=== PATIENT | female | born 2000 | race Two or more races ===

== ENCOUNTER 2024-06-26 20:55 | Observation (INO) | payer OTHER, MEDICAID, SELFPAY ==
[2024-06-26 20:58] VITALS: BP 130/76; PULSE 130; RESP 20; TEMP 37.2
--- NOTE | 2024-06-26 21:14 | XR_ITS ---
Examination: Biophysical profile, ultrasound Date and time of exam: June 26, 2024 2152 hrs. Indications: Decreased movement beginning 2 days ago Technique: Multiple transabdominal sonographic images of the pelvis abdomen obtained. Attention is directed to the breathing movement, gross body movement, amniotic fluid volume and tone. Findings: Amniotic fluid index 15.1 cm Total biophysical profile is 8 of 8. breathing movement is 2. Gross body movement is 2. tone is 2. Qualitative amniotic fluid volume is 2 Impression: Biophysical profile is 8 of 8.
[2024-06-26 21:50] LABS: Collection Type, Urine Clean Catch
[2024-06-26 22:02] LABS: Basophils % (Auto) 0 % (0-2.5); Eosinophils % (Auto) 0 % (0-10); Hematocrit 33.3 % (36.0-46.0); Hemoglobin 10.8 g/dL (12.0-16.0); Immature Granulocytes % (Auto) 0 % (0-0); Immature Granulocytes Auto 0.05 Thou/mm3 (0.00-0.00); Lymphocytes # (Auto) 0.8 Thou/mm3 (1.0-4.8); Lymphocytes % (Auto) 6 % (10-50); Mean Corpuscular HGB Conc 32.4 g/dl (31.0-37.0); Mean Corpuscular Hemoglobin 27.7 pg (25.0-35.0); Mean Corpuscular Volume 85 fL (80-100); Monocytes # (Auto) 1.4 Thou/mm3 (0.0-0.8); Monocytes % (Auto) 10 % (0-12); Neutrophils # (Auto) 11.4 Thou/mm3 (1.8-7.7); Neutrophils % (Auto) 83 % (37-80); Nucleated Red Blood Cell % 0 /100 WBC (0); Platelet Count 245 Thou/mm3 (140-440); RDW Standard Deviation 41.3 fL (36.4-46.3); White Blood Count 13.7 Thou/mm3 (3.6-11.0)
[2024-06-26 22:11] LABS: Alanine Aminotransferase 15 U/L (10-49); Albumin, Serum 4.1 gm/dL (3.5-5.0); Albumin/Globulin Ratio 1.4 (1.2-2.2); Alkaline Phosphatase 91 U/L (46-116); Anion Gap 8 (7-16); Aspartate Amino Transferase 16 U/L (0-34); BUN/Creatinine Ratio 10 Ratio (12-20); Bilirubin,Total 1.1 mg/dL (0.3-1.2); Blood Urea Nitrogen 6 mg/dL (9-23); Calcium 9.2 mg/dL (8.3-10.6); Calcium (Corrected) 9.2 mg/dL (8.5-10.1); Chloride 101 mMol/L (98-107); Creatinine (Component) 0.6 mg/dL (0.6-1.3); Glucose 92 mg/dL (74-106); LDH (Lactate Dehydrogenase) 150 U/L (120-246); Osmolality,Calculated 260 (275-295); Potassium 3.7 mMol/L (3.4-5.1); Sodium 131 mMol/L (136-145); Total Protein 7.1 gm/dL (5.7-8.2); Uric Acid 4.3 mg/dL (3.1-7.8); eGFR > 60 See Note
[2024-06-26 22:14] LABS: Partial Thromboplastin Time 30.2 Seconds (22.0-36.0); Prothrombin Time 11.2 Seconds (9.0-12.2)
[2024-06-26 22:17] LABS: Fibrinogen 674 mg/dL (175-375)
[2024-06-26 22:28] LABS: Bacteria,Urine Rare; Bilirubin,Urine Negative (Negative); Blood,Urine Trace (Negative); Clarity,Urine Turbid (Clear/Hazy); Color,Urine Yellow (Lt Yel-Yel); Glucose, Urine Negative (Negative); Ketones,Urine 3+ (Negative); Leukocyte Esterase,Urine Positive (Negative); Nitrite,Urine Positive (Negative); Protein,Urine 1+ (Neg - Trace); RBC,Urine 12 /hpf (0-3); Specific Gravity,Urine 1.024 (1.001-1.035); Squamous Epithelial Cell,Urine 15 /hpf (0-5); Urobilinogen,Urine Negative mg/dL (0.0-1.0); WBC,Urine 172 /hpf (0-5)
[2024-06-26 22:55] VITALS: BMI 30.1
[2024-06-26] MEDS: RINGERS LACTATED 1000 ML 1,000 ML 999 ML IV (23:43)
[2024-06-26] MEDS: cefTRIAXone 1,000 MG in SODIUM CHLORIDE 0.9% (P) 50 ML 100 MG IV (23:52)
[2024-06-26 23:59] VITALS: TEMP 37.5
[2024-06-27] MEDS: ONDANSETRON INJ 2 MG/ML INJ 2 ML 4 MG IV (00:41)
[2024-06-27] MEDS: ACETAMINOPHEN IVPB 1,000 MG/100 ML VIAL 250 MG IV (00:44)
[2024-06-27 02:00] VITALS: RESP 16; TEMP 36.7; O2SAT 100
--- NOTE | 2024-06-27 21:32 | PC.NURSE ---
2126: PT CALLED REGARDING RX PRESCRIBED BY DR. ROSE, PT WAS MADE AWARE THAT A VOICEMAIL WAS LEFT, PT REPORTED SHE DID NOT RECEIVE IT, PT WAS INSTRUCTED THAT RX FOR MACROBID 100MG PO BID X5 DAYS FOR UTI WAS CALLED IN TO [facility], S/E EXPLAINED TO PT, PT HAD NO QUESTIONS AND VERBALIZED UNDERSTANDING.
== END 2024-06-27 02:00 | disposition home or self-care (01) ==
PROVIDERS: Admitting Provider Obstetrics & Gynecology; Visit Provider Obstetrics & Gynecology
DX: O36.8130 Decreased fetal movements, third trimester, not applicable or unspecified (principal); O21.2 Late vomiting of pregnancy; O26.893 Other specified pregnancy related conditions, third trimester; R42 Dizziness and giddiness; R51.9 Headache, unspecified; Z3A.31 31 weeks gestation of pregnancy
CPT/HCPCS: 36415; 59025; 59899; 76819; 80053; 81001; 83615; 84550; 85025; 85384; 85610; 85730; 96374; G0378; J0131; J0696; J2405; J7050; J7120

== ENCOUNTER 2025-05-15 20:11 | Emergency (ER) | payer OTHER, SELFPAY ==
[2025-05-15 20:12] VITALS: BMI 30.9
[2025-05-15 20:32] VITALS: BP 116/78; PULSE 73; RESP 18; TEMP 37.6; O2SAT 97
[2025-05-15 21:28] LABS: Basophils # (Auto) 0.0 Thou/mm3 (0.0-0.2); Basophils % (Auto) 0 % (0-2.5); Eosinophils # (Auto) 0.1 Thou/mm3 (0.0-0.5); Eosinophils % (Auto) 1 % (0-10); Hematocrit 36.6 % (36.0-46.0); Hemoglobin 12.2 g/dL (12.0-16.0); Immature Granulocytes Auto 0.02 Thou/mm3 (0.00-0.00); Lymphocytes # (Auto) 1.8 Thou/mm3 (1.0-4.8); Lymphocytes % (Auto) 20 % (10-50); Mean Corpuscular HGB Conc 33.3 g/dl (31.0-37.0); Mean Corpuscular Hemoglobin 27.5 pg (25.0-35.0); Mean Corpuscular Volume 83 fL (80-100); Monocytes # (Auto) 0.6 Thou/mm3 (0.0-0.8); Monocytes % (Auto) 7 % (0-12); Neutrophils # (Auto) 6.6 Thou/mm3 (1.8-7.7); Neutrophils % (Auto) 72 % (37-80); Nucleated Red Blood Cell # 0.00 Thou/mm3 (0.00-0.00); Nucleated Red Blood Cell % 0 /100 WBC (0); Platelet Count 328 Thou/mm3 (140-440); RDW Standard Deviation 42.3 fL (36.4-46.3); Red Blood Count 4.43 Miln/mm3 (4.00-5.20); White Blood Count 9.2 Thou/mm3 (3.6-11.0)
[2025-05-15 21:43] LABS: Alanine Aminotransferase 18 U/L (10-49); Albumin, Serum 4.5 gm/dL (3.5-5.0); Albumin/Globulin Ratio 1.7 (1.2-2.2); Alkaline Phosphatase 50 U/L (46-116); Anion Gap 10 (7-16); Aspartate Amino Transferase 16 U/L (0-34); BUN/Creatinine Ratio 14 Ratio (12-20); Bilirubin,Total 1.1 mg/dL (0.3-1.2); Blood Urea Nitrogen 7 mg/dL (9-23); Calcium 9.7 mg/dL (8.3-10.6); Calcium (Corrected) 9.7 mg/dL (8.5-10.1); Carbon Dioxide 24.1 mMol/L (20.0-31.0); Chloride 105 mMol/L (98-107); Creatinine (Component) 0.5 mg/dL (0.6-1.3); Estimated Creatinine Clearance 180.9 mL/min (>60); Globulin 2.7 gm/dL (2.3-3.5); Glucose 95 mg/dL (74-106); Osmolality,Calculated 275 (275-295); Potassium 3.9 mMol/L (3.4-5.1); Sodium 139 mMol/L (136-145); Total Protein 7.2 gm/dL (5.7-8.2); eGFR > 60 See Note
[2025-05-15 21:44] LABS: Collection Type, Urine Clean Catch
[2025-05-15 21:51] LABS: HCG Qualitative,Urine Positive
[2025-05-15 21:53] LABS: Bacteria,Urine Rare; Bilirubin,Urine Negative (Negative); Blood,Urine Negative (Negative); Clarity,Urine Clear (Clear/Hazy); Color,Urine Yellow (Lt Yel-Yel); Glucose, Urine Negative (Negative); Ketones,Urine 4+ (Negative); Leukocyte Esterase,Urine Positive (Negative); Nitrite,Urine Negative (Negative); PH,Urine 6.0 (5.0-7.0); Protein,Urine 1+ (Neg - Trace); RBC,Urine 4 /hpf (0-3); Specific Gravity,Urine 1.039 (1.001-1.035); Squamous Epithelial Cell,Urine 9 /hpf (0-5); Urobilinogen,Urine 2.0 mg/dL (0.0-1.0); WBC,Urine 7 /hpf (0-5)
[2025-05-15] MEDS: ONDANSETRON ODT 4 MG TABRAP PO (23:54)
[2025-05-16] MEDS: SODIUM CHLORIDE 0.9% 1000 ML 1,000 ML 999 ML IV (00:06)
--- NOTE | 2025-05-16 00:15 | XR_ITS ---
Examination: Complete OB ultrasound, less than 14 weeks, transabdominal Date and time of exam: May 16, 2025 0020 hrs. Indications: Hematemesis, hyperemesis this week Technique: Obstetrical ultrasound images less than 14 weeks performed via transabdominal imaging Findings: A normal shaped single intrauterine gestation is present in the uterus. CRL 2.4 cm corresponds to 9 weeks 0 days gestational age Cardiac motion 166 BPM Ultrasonographic survey of visible and placental structures unremarkable. Amniotic fluid volume appears appropriate for this estimated gestational age. Right ovary 4.2 cm arterial flow Left ovary history removal Impression: Viable intrauterine gestation 9 weeks 0 days.
[2025-05-16 00:18] VITALS: BP 107/59; PULSE 71; RESP 18; TEMP 36.9; O2SAT 100
--- NOTE | 2025-05-16 01:24 | PD.EDPREG ---
ED OB Contraction Preg RMI/HPI General Chief complaint: Nausea/Vomiting/Diarrhea Stated complaint: 13 WKS PREG VOMITING Time Seen by Provider: 05/15/25 20:28 Arrival date/time: 05/15/25 20:11 This is a case of 24-year-old female with no medical history came in in the emergency room due to nausea vomiting today 3 times nonprojectile but no pelvic pain no vaginal bleeding no diarrhea patient is 9 weeks 6 para 1 3 miscarriage 1 ectopic persistence of the symptoms this patient decided to sought consult here in the emergency room Limitations: no limitations Related Data Previous Rx's ?Medication ?Instructions ?Recorded ferrous sulfate 325 mg (65 mg 325 mg PO TID #60 tabs 05/23/24 iron) tablet (iron) nitrofurantoin 100 mg PO BID #20 caps 05/16/25 monohydrate/macrocrystals 100 mg capsule (Macrobid) ondansetron 4 mg disintegrating 4 mg PO Q8H PRN nausea and 05/16/25 tablet vomiting #6 tabs Allergies Allergy/AdvReac Type Severity Reaction Status Date / Time No Known Allergies Allergy Verified 05/15/25 20:15 Review of Systems Review of Systems Systems Reviewed: All systems reviewed, normal except as documented Constitutional Constitutional: Reports system reviewed and no additional complaints, except as documented and Reports as per HPI Cardiovascular Cardiovascular: Reports system reviewed and no additional complaints, except as documented and Reports as per HPI Respiratory Respiratory: Reports system reviewed and no additional complaints, except as documented and Reports as per HPI Gastrointestinal Gastrointestinal: Reports system reviewed and no additional complaints, except as documented and Reports as per HPI Genitourinary Genitourinary: Reports system reviewed and no additional complaints, except as documented and Reports as per HPI Musculoskeletal Musculoskeletal: Reports system reviewed and no additional complaints, except as documented and Reports as per HPI Neurologic Neurologic: Reports system reviewed and no additional complaints, except as documented and Reports as per HPI Past Medical History Past Medical History NEUROLOGIC: Positive Migraine; Negative Neurological Disorders or Seizures CARDIAC: Negative Cardiac Disorders, Myocardial Infarction, Cardiac Arrhythmia, Atrial Fibrillation, Angina, Heart Murmur, Coronary Artery Disease, Atherosclerotic Heart Disease, Peripheral Vascular Disease, Hypercholesterolemia, Aneurysm, Congestive Heart Failure, Congenital Heart Disease, Valvular Heart Disease, Rheumatic Fever, Cardiomyopathy, Edema, Pericarditis, Cellulitis, Deep Vein Thrombosis, Hypertension, Hypotension or Varicose Veins RESPIRATORY: Negative Chronic Obstructive Pulmonary Disease (COPD) GASTROINTESTINAL: Negative Gastrointestinal Disorders or Hepatitis GENITOURINARY: Negative Genitourinary Disorders or Renal Disease (Recurrent UTIs) REPRODUCTIVE: Positive Previous Pregnancies MUSCULOSKELETAL: Negative Musculoskeletal Disorders ENDOCRINE: Negative Endocrine Disorders, Diabetes Mellitus Type 1 or Diabetes Mellitus Type 2 HEMATOLOGIC: Negative Blood Disorders OTHER HISTORY: Negative Autoimmune Disease, Blood Transfusions, Anesthesia Reactions, Organ Transplant, MRSA, VRSA, Clostridium Difficile or Cancer Family History FAMILY HISTORY: Positive Family Cardiac Disorders and Family Cancer (Uterine-Grandmother); Negative Family Psychiatric Problems, Family Respiratory Disorders, Family Gastrointestinal Problems, Family Surgery or Family Anesthesia Reaction Surgical History SURGICAL: Negative Cardiac Surgery, Pacemaker, Endocrine Surgery, Ear Surgery, Abdominal Surgery, Nephrectomy, Joint Replacement, Neurologic Surgery or Organ Transplant Social History SMOKING STATUS: Never smoker SECOND HAND EXPOSURE: No ED Exam General Limitations: Present no limitations General appearance: Present alert, in no apparent distress and other (Patient is awake alert oriented not in distress nontoxic looking well-hydrated well-nourished) Head Head exam: Present atraumatic, normocephalic and normal inspection Eye Eye exam: Present normal appearance, PERRL and EOMI ENT ENT exam: Present normal exam, normal oropharynx and mucous membranes moist Neck Neck exam: Present normal inspection, full ROM and trachea midline; Absent tenderness, meningismus, lymphadenopathy or thyromegaly Chest Chest inspection: Present normal inspection and symmetric chest wall rise; Absent tenderness, rash or abscess Respiratory Respiratory exam: Present normal lung sounds bilaterally; Absent respiratory distress, wheezes, stridor, accessory muscle use or prolonged expiratory phase Cardiovascular Cardiovascular exam: Present regular rate, normal rhythm and normal heart sounds; Absent bradycardia, tachycardia, irregular rhythm, systolic murmur or diastolic murmur Abdominal Exam Abdominal exam: Present soft, normal bowel sounds and other (Gravid uterus no CVA tenderness); Absent distention, tenderness, guarding, rebound, rigidity, diminished bowel sounds, hyperactive bowel sounds, hypoactive bowel sounds, organomegaly, psoas sign, obturator sign, Hylton's sign, Rovsing's sign, tenderness at McBurney's Point or hernia Extremities Exam Extremities exam: Present normal inspection and full ROM Back Exam Back exam: Present normal inspection and full ROM Neurological Exam Neurological exam: Present alert, oriented X3, CN II-XII intact, normal gait and reflexes normal; Absent motor sensory deficit Psychiatric Psychiatric exam: Present normal affect and normal mood Skin Skin exam: Present warm, dry, intact and normal color Course Quality Measures none Orders Category Date Time Status US OB <= 14 weeks fetus Stat Exams 05/16/25 00:15 Taken ABO/RH Type Stat Lab 05/15/25 23:56 Completed Beta HCG,Quantitative Stat Lab 05/15/25 23:56 Completed CBC Stat Lab 05/15/25 21:00 Completed Comprehensive Metabolic Panel Stat Lab 05/15/25 21:00 Completed HCG Qualitative,Urine Stat Lab 05/15/25 21:33 Completed Urinalysis Stat Lab 05/15/25 21:33 Completed Nitrofurantoin Macro [Macrobid] Med 05/16/25 02:04 Discontinued 100 mg PO X1 ONE Ondansetron Odt [Zofran Odt] Med 05/15/25 20:39 Discontinued 4 mg PO X1 ONE Sodium Chloride 0.9% 1000 ml [Ns] 1,000 ml Med 05/15/25 20:39 Discontinued IV 999 mls/hr Vital Signs Vital signs: Vital Signs Temperature 99.6 F 05/15/25 20:32 Pulse Rate 73 05/15/25 20:32 Respiratory Rate 18 05/15/25 20:32 Blood Pressure 116/78 05/15/25 20:32 Pulse Oximetry (%) 97 05/15/25 20:32 Oxygen Delivery Method Room Air 05/15/25 20:32 Oxygen saturation is 97% in room air OB/Uterine Contractions MDM Narrative MDM Narrative:: This is a case of 24-year-old female with no medical history came in in the emergency room due to nausea vomiting today 3 times nonprojectile but no pelvic pain no vaginal bleeding no diarrhea patient is 9 weeks 6 para 1 3 miscarriage 1 ectopic persistence of the symptoms this patient decided to sought consult here in the emergency room physical examination patient is awake alert oriented not in distress nontoxic looking well-hydrated well-nourished abdominal exam is benign nonsurgical no guarding no rebound no rigidity negative psoas negative straight or negative Rovsing's negative Axis's no Hylton sign negative CVA tenderness gravid uterus patient have excellent skin turgor the rest of the physical examination and neurological exam is normal and unremarkable patient blood test showed no leukocytosis no anemia kidney and liver function is normal no electrolyte imbalance patient urinalysis showed WBC and blood in the urine suggestive of urinary tract infection patient beta-hCG [id number] patient pelvic ultrasound showed 9 weeks with heart tones of 166 patient was given a bolus of normal saline and Zofran patient was reassessed after 2 hours patient condition markedly improved no recurrence of vomiting no abdominal pain no vaginal bleeding at this point patient will be discharged home with stable condition she was advised to see a OB primary health care nurse for further evaluation and treatment of hyperemesis gravidarum and checkup for any recurrence persistent worsening symptoms or any emergent concerns she will return in the emergency room immediately or call 911 patient was prescribed with Macrobid for urinary tract infection Patient was discharged with comfortable condition walking with stable gait. Patient verbalized no further complains explained diagnosis and answered patient question. Patient is comfortable with the proposed management plan including the need to follow up with his/her primary care physician and any specialist if applicable Discussed patient for any urgent condition or worsening sx, He/She needed to go to emergency room immediately or call 911. Patient acknowledge the responsibility to follow up as instructed and to monitor her/his symptoms. For any persistence of the symptoms for more than 3-5 days return precaution advised. Discussed the result of the test and was given printed discharge instruction Patient data External records reviewed:: [facility] previous records Clinical information provided by:: patient Social determinants that could affect healthcare access:: none Patient has the following chronic illnesses:: None How is presenting disease/condition affected by chronic disease/condition?: no chronic disease Evaluation data The following diagnostics were reviewed and interpreted by me:: lab results and radiology exam(s) Lab and/or radiology exams considered but not ordered:: Reviewed Interpretation Summary: Reviewed Medications / Prescriptions Medications or Prescriptions considered but not ordered:: Given Medication administrations:: Medication Administration History Discontinued Medications Sodium Chloride (Ns) 1,000 mls @ 999 mls/hr IV .Q1H1M ONE Stop: 05/15/25 21:39 Last Infusion: 05/16/25 01:57 Dose: Infused Documented By: Admin: 05/16/25 00:06 Dose: 999 mls/hr Documented By: IVONNE Nitrofurantoin Macrocrystals (Nitrofurantoin Macro 100 Mg Capsule) 100 mg PO X1 ONE Stop: 05/16/25 02:05 Last Admin: 05/16/25 02:11 Dose: 100 mg Documented By: IVONNE Ondansetron HCl (Ondansetron Odt 4 Mg Tabrap) 4 mg PO X1 ONE; Protocol Stop: 05/15/25 20:40 Last Admin: 05/15/25 23:54 Dose: 4 mg Documented By: MC Given Consultations Consultation(s) initiated? (list below): No Diagnosis OB Contractions Differential Diagnosis: other (Hyperemesis gravidarum urinary tract infection) Most likely diagnosis given after review of the tests above:: Hyperemesis gravidarum urinary tract infection Admission Indicated Admission indicated?: not indicated Explain why admission is indicated or not indicated:: Not indicated Admission Request Was there a request for admission?: No Admission Attestation Admission request attestation: Not indicated Disposition Plan Disposition Plan: Discharge Discharge Attestation Discharge Attestation: The patient and all family members were given an opportunity to ask questions and understood the discharge instructions. Discharge instructions specifically effects, indications for sooner follow up or return to the emergency department, and the expected course of current diagnosis. Patient condition: Stable Discharge Plan Plan Patient Disposition: HOME (Self Care) Patient condition on transfer: Stable Prescriptions/Referrals Prescriptions/Med Rec: New ondansetron 4 mg tablet,disintegrating 4 mg PO Q8H PRN (Reason: nausea and vomiting) Qty: 6 0RF nitrofurantoin monohyd/m-cryst [Macrobid] 100 mg capsule 100 mg PO BID Qty: 20 0RF Rx Instructions: must administer with a meal/food No Action ferrous sulfate [iron] 325 mg (65 mg iron) tablet 325 mg PO TID Qty: 60 0RF Referrals: Stew Garcia PA-C [Primary Care Provider] - In 1 week Problem List Clinical Impression: Hyperemesis gravidarum, Urinary tract infection Patient/Caregiver Discharge Instructions Education Materials: Urinary Tract Infections in Women, ED Hyperemesis Gravidarum Additional Instructions: Follow-up with your primary care physician in 2 days for reevaluation and it is very important to see OB primary health care nurse for further evaluation and treatment of your hyperemesis gravidarum and for checkup recurrence persistent worsening symptoms or any emergent concerns such as vaginal bleeding abdominal pain call 911 or go to the nearest take your medication as directed finish the course of antibiotic increase water intake keep hydrated is advised it is very important to see OB primary health care nurse in 2 days if not return to the emergency room in 2 days for reevaluation for possible repeat pelvic ultrasound and beta-hCG Print Language: Occitan Stand Alone Forms: [facility] Del [facility] Award Info., Patient Portal Info Letter PA/ADULT EDUCATION MANAGER Supervising Physician PA/ADULT EDUCATION MANAGER Supervising Physician: Dr. Isaías Jim
[2025-05-16 01:25] LABS: Beta HCG,Quantitative 139670 mIU/mL (<5.0)
[2025-05-16 02:01] VITALS: BP 117/81; PULSE 68; RESP 17; TEMP 37.2; O2SAT 98
[2025-05-16] MEDS: NITROFURANTOIN MACRO 100 MG CAPSULE PO (02:11)
--- NOTE | 2025-05-16 02:11 | PRELIM_ITS ---
Obstetric ultrasound (transabdominal). May 16, 2025 at 0024 hours Clinical history: Pelvic pain. Left oophorectomy x years ago. No prior study is available for comparison. Findings: There is an intrauterine gestation with a single live fetus of mean gestational age 9 weeks and 0 day, crown rump length is 2.4 cm. cardiac activity is present at heart rate of 166 beats per minute. The yolk sac is demonstrated. The uterus measures 11.2 x 6.5 x 7.4 cm. The right ovary measures 4.2 x 3.3 x 3.5 cm. The right ovary demonstrates color flow and spectral waveforms on Doppler evaluation. The left ovary is not visualized, likely surgically absent. There is no free fluid in the pelvis. Impression: Intrauterine gestation with a single live fetus of mean gestational age 9 weeks and 0 day. Other findings as described above. Report Electronically Signed By: Lupillo Galeano 05/16/2025 2:10:24 AM [EST]
== END 2025-05-16 03:08 | disposition home or self-care (01) ==
PROVIDERS: Nurse Practitioner Family; Emergency Provider Emergency Medicine; PCP Physician Assistant
DX: O21.0 Mild hyperemesis gravidarum (principal); O23.41 Unspecified infection of urinary tract in pregnancy, first trimester; N39.0 Urinary tract infection, site not specified; Z3A.09 9 weeks gestation of pregnancy
CPT/HCPCS: 36415; 76801; 80053; 81001; 81025; 84702; 85025; 86900; 86901; 96360; 96361; 99283; J7030; Q0162; A9270